=== PATIENT | male | born 1965 | race Caucasian/White ===

== ENCOUNTER 2019-12-07 15:02 | Inpatient (IN) | payer OTHER ==
[~2019-12-07] VITALS: Ht 182.9 cm; Wt 90.9 kg
[~2019-12-07 15:02] MED LIST: [UNRECOGNIZED DRUG - REMARK]
[2019-12-07] MEDS ORDERED: SERT50TA12 PO (15:23)
[2019-12-07] MEDS ORDERED: LISI-662 PO (15:23)
[2019-12-07] MEDS ORDERED: OLAN5TAB2 PO (15:23)
[2019-12-07] MEDS ORDERED: PERTUSS(ACELL),DIPH,TET VAC/PF 0.5 ML VIAL IM ONE (15:30)
[2019-12-07] MEDS ORDERED: BACITRACIN 0.9 GM PACKET OINTMENT TP ONE (15:30)
[2019-12-07] MEDS ORDERED: LORazepam 2 MG/ML VIAL IM ONE (15:45)
[2019-12-07] MEDS ORDERED: DiphenhydrAMINE HCL 50 MG/ML VIAL IM ONE (15:45)
[2019-12-07] MEDS ORDERED: HALOPERIDOL LACTATE 5 MG/ML VIAL IM ONE (15:45)
[2019-12-07 16:51] LABS: BASOPHILS % (AUTO) 0.7 % (0.0-2.0); EOSINOPHILS % (AUTO) 3.6 % (1.0-6.0); HEMATOCRIT 40.2 % (41-53); HEMOGLOBIN 13.7 g/dL (13.5-17.5); LYMPHOCYTES # (AUTO) 1.4 K/uL (1.0-4.8); LYMPHOCYTES % (AUTO) 18.5 % (22.0-44.0); MEAN CORPUSCULAR HEMOGLOBIN 30.3 pg (26.0-34.0); MEAN CORPUSCULAR HGB CONC 34.2 G/dL (31.0-37.0); MEAN CORPUSCULAR VOLUME 89 fL (80-100); MONOCYTES # (AUTO) 0.5 K/uL (0.1-1.0); MONOCYTES % (AUTO) 6.8 % (2.0-9.0); NEUTROPHILS # (AUTO) 5.3 K/uL (1.8-7.7); NEUTROPHILS % (AUTO) 70.4 % (40.0-70.0); PLATELET COUNT (AUTO) 185 K/uL (150-450); RED BLOOD CELL COUNT(AUTO) 4.54 MIL/uL (4.50-5.90); RED CELL DISTRIBUTION WIDTH 13.2 % (11.5-14.5)
[2019-12-07 16:54] LABS: ANION GAP 7 mmol/L (8-16); CARBON DIOXIDE 26 mmol/L (22-29); CHLORIDE 104 mmol/L (98-107); CREATININE 1.38 mg/dL (0.60-1.30); GLOMERULAR FILTR. RATE CALC 54 mL/min (>60); GLUCOSE,RANDOM 113 mg/dL (70-110); POTASSIUM 3.4 mmol/L (3.5-5.1); SODIUM SERUM 137 mmol/L (136-145); UREA NITROGEN, BLOOD 15 mg/dL (7-18)
[2019-12-07 17:09] LABS: ALANINE AMINOTRANSFERASE 47 U/L (12-78); ALBUMIN 3.5 g/dL (3.4-5.0); ALKALINE PHOSPHATASE 82 U/L (46-116); ASPARTATE AMINOTRANSFERASE 24 U/L (15-37); BILIRUBIN,TOTAL 0.4 mg/dL (0.1-1.0); TOTAL PROTEIN, SERUM 7.2 g/dL (6.4-8.2)
[2019-12-07] MEDS ORDERED: 0.9% SODIUM CHLORIDE 10 ML SYRINGE IVP PRN ×2 (18:45→20:30)
[2019-12-07] MEDS ORDERED: ACETAMINOPHEN 325 MG TABLET PO PRN ×2 (18:45→20:30)
[2019-12-07 20:00] VITALS: BP 154/79
[2019-12-07] MEDS ORDERED: LORazepam 2 MG TABLET PO PRN (20:30)
[2019-12-07] MEDS ORDERED: BISACODYL 10 MG RECTAL RECTAL SUPPOSITORY PR PRN (20:30)
[2019-12-07 20:55] VITALS: BP 152/105
[2019-12-07 21:00] VITALS: BP 158/65
[2019-12-07 21:04] LABS: CREATINE KINASE, TOTAL ONLY 195 U/L (39-308)
[2019-12-07 21:19] LABS: AMPHET/METH SCREEN,URINE NEGATIVE (NEGATIVE); BARBITURATE SCREEN, URINE NEGATIVE (NEGATIVE); BENZODIAZEPINES SCREEN,URINE NEGATIVE (NEGATIVE); CANNABINOID SCREEN,URINE NEGATIVE (NEGATIVE); COCAINE SCREEN,URINE NEGATIVE (NEGATIVE); METHADONE SCREEN, URINE NEGATIVE (NEGATIVE); OPIATE SCREEN,URINE NEGATIVE (NEGATIVE); PHENCYCLIDINE SCREEN,URINE NEGATIVE (NEGATIVE)
[2019-12-07] MEDS: 1: MAGNESIUM SULFATE 2 GM, MVI, ADULT NO.1 WITH VIT K 10 ML, THIAMINE 100 MG, FOLIC ACID IV SCH ×5 (21:45)
[2019-12-07 22:00] VITALS: BP 150/74
[2019-12-07 22:58] VITALS: BP 157/95
[2019-12-08 04:42] VITALS: BP 138/99
[2019-12-08] MEDS: 1: MAGNESIUM SULFATE 2 GM, MVI, ADULT NO.1 WITH VIT K 10 ML, THIAMINE 100 MG, FOLIC ACID IV SCH ×10 (06:35→17:44)
[2019-12-08] MEDS ORDERED: LORazepam 2 MG TABLET PO PRN (07:00)
[2019-12-08] MEDS: FAMOTIDINE 20 MG TABLET PO SCH (09:00)
[2019-12-08] MEDS: LORazepam 2 MG TABLET PO SCH ×2 (09:00→13:07)
[2019-12-08] MEDS: ENOXAPARIN SODIUM 40 MG/0.4 ML PF SYRINGE SQ SCH (09:00)
[2019-12-08 10:48] VITALS: BP 154/111
[2019-12-08 10:54] VITALS: BP 159/103
[2019-12-08 14:08] VITALS: BP 147/89
[2019-12-08] MEDS: LISINOPRIL 20 MG TABLET PO SCH (16:08)
[2019-12-08 16:23] LABS: CALCIUM, TOTAL 8.1 mg/dL (8.8-10.5); CREATININE 1.25 mg/dL (0.60-1.30); POTASSIUM 3.6 mmol/L (3.5-5.1)
[2019-12-08] MEDS ORDERED: LORazepam 1 MG TABLET PO SCH (18:00)
[2019-12-08 19:40] VITALS: BP 149/92
[2019-12-09] MEDS: LORazepam 1 MG TABLET PO PRN ×2 (00:09→20:17)
[2019-12-09] MEDS ORDERED: SODIUM CHLORIDE 0.9% 1,000 ML ONE (02:28)
[2019-12-09] MEDS: 1: MAGNESIUM SULFATE 2 GM, MVI, ADULT NO.1 WITH VIT K 10 ML, THIAMINE 100 MG, FOLIC ACID IV SCH ×10 (02:30→14:27)
[2019-12-09 04:32] VITALS: BP 147/95
[2019-12-09 07:02] LABS: BASOPHILS % (AUTO) 0.8 % (0.0-2.0); EOSINOPHILS % (AUTO) 6.1 % (1.0-6.0); HEMATOCRIT 37.9 % (41-53); HEMOGLOBIN 13.1 g/dL (13.5-17.5); LYMPHOCYTES # (AUTO) 1.9 K/uL (1.0-4.8); LYMPHOCYTES % (AUTO) 23.8 % (22.0-44.0); MEAN CORPUSCULAR HEMOGLOBIN 30.4 pg (26.0-34.0); MEAN CORPUSCULAR HGB CONC 34.6 G/dL (31.0-37.0); MEAN CORPUSCULAR VOLUME 88 fL (80-100); MONOCYTES # (AUTO) 0.6 K/uL (0.1-1.0); MONOCYTES % (AUTO) 7.2 % (2.0-9.0); NEUTROPHILS % (AUTO) 62.1 % (40.0-70.0); PLATELET COUNT (AUTO) 184 K/uL (150-450); RED BLOOD CELL COUNT(AUTO) 4.32 MIL/uL (4.50-5.90); RED CELL DISTRIBUTION WIDTH 13.1 % (11.5-14.5)
[2019-12-09 07:19] VITALS: BP 152/97
[2019-12-09 07:21] LABS: CALCIUM, TOTAL 8.6 mg/dL (8.8-10.5); CREATININE 1.26 mg/dL (0.60-1.30); POTASSIUM 3.5 mmol/L (3.5-5.1)
[2019-12-09] MEDS: ENOXAPARIN SODIUM 40 MG/0.4 ML PF SYRINGE SQ SCH (08:04)
[2019-12-09] MEDS: CITALOPRAM HYDROBROMIDE 20 MG TABLET PO SCH (08:04)
[2019-12-09] MEDS: LITHIUM CARBONATE 300 MG CAPSULE PO SCH ×2 (08:04→20:17)
[2019-12-09] MEDS: FAMOTIDINE 20 MG TABLET PO SCH (08:04)
[2019-12-09] MEDS: LISINOPRIL 20 MG TABLET PO SCH (08:04)
[2019-12-09 13:44] VITALS: BP_SYST 14; BP_SYST 147; BP_DIAS 88
[2019-12-09 15:16] VITALS: BP 131/89
[2019-12-09] MEDS: AmLODIPine BESYLATE 5 MG TABLET PO SCH (15:40)
[2019-12-09 19:16] VITALS: BP 134/83
[2019-12-09 20:00] VITALS: BP 134/83
[2019-12-09] MEDS: OLANZapine 10 MG TABLET PO SCH (20:17)
[2019-12-10] MEDS: 1: MAGNESIUM SULFATE 2 GM, MVI, ADULT NO.1 WITH VIT K 10 ML, THIAMINE 100 MG, FOLIC ACID IV SCH ×15 (00:49→22:50)
[2019-12-10 06:37] VITALS: BP 163/89
[2019-12-10] MEDS: LISINOPRIL 20 MG TABLET PO SCH (06:39)
[2019-12-10] MEDS ORDERED: LORazepam 1 MG TABLET PO PRN (07:00)
[2019-12-10 07:37] VITALS: BP 142/83
[2019-12-10] MEDS ORDERED: LORazepam 1 MG TABLET PO SCH (09:00)
[2019-12-10] MEDS: CITALOPRAM HYDROBROMIDE 20 MG TABLET PO SCH (09:09)
[2019-12-10] MEDS: AmLODIPine BESYLATE 5 MG TABLET PO SCH (09:09)
[2019-12-10] MEDS: LITHIUM CARBONATE 300 MG CAPSULE PO SCH ×2 (09:09→20:24)
[2019-12-10] MEDS: FAMOTIDINE 20 MG TABLET PO SCH (09:09)
[2019-12-10] MEDS: ENOXAPARIN SODIUM 40 MG/0.4 ML PF SYRINGE SQ SCH (09:09)
[2019-12-10 15:10] VITALS: BP 126/81
[2019-12-10] MEDS ORDERED: SODIUM CHLORIDE 0.9% 1,000 ML ONE (20:18)
[2019-12-10 20:23] VITALS: BP 148/97
[2019-12-10] MEDS: OLANZapine 10 MG TABLET PO SCH (20:25)
[2019-12-11 04:31] VITALS: BP 138/82
[2019-12-11] MEDS: 1: MAGNESIUM SULFATE 2 GM, MVI, ADULT NO.1 WITH VIT K 10 ML, THIAMINE 100 MG, FOLIC ACID IV SCH ×10 (04:50→15:20)
[2019-12-11] MEDS ORDERED: LORazepam 1 MG TABLET PO PRN (07:00)
[2019-12-11 07:56] VITALS: BP 152/97
[2019-12-11] MEDS: CITALOPRAM HYDROBROMIDE 20 MG TABLET PO SCH (08:12)
[2019-12-11] MEDS: LITHIUM CARBONATE 300 MG CAPSULE PO SCH ×2 (08:13→20:21)
[2019-12-11] MEDS: FAMOTIDINE 20 MG TABLET PO SCH (08:13)
[2019-12-11] MEDS: AmLODIPine BESYLATE 5 MG TABLET PO SCH (08:13)
[2019-12-11] MEDS: LISINOPRIL 20 MG TABLET PO SCH (08:13)
[2019-12-11] MEDS: ENOXAPARIN SODIUM 40 MG/0.4 ML PF SYRINGE SQ SCH (08:17)
[2019-12-11] MEDS ORDERED: CITA-144 PO (11:08)
[2019-12-11] MEDS ORDERED: AMLO-257 PO (11:08)
[2019-12-11] MEDS ORDERED: LISI-661 PO (11:08)
[2019-12-11] MEDS ORDERED: OLAN10TA3 PO (11:09)
[2019-12-11] MEDS ORDERED: LITH300CRT PO (11:09)
[2019-12-11] MEDS ORDERED: ACET-66 PO (11:10)
[2019-12-11 20:10] VITALS: BP 151/93
[2019-12-11] MEDS: OLANZapine 10 MG TABLET PO SCH (20:21)
== END 2019-12-11 23:10 | DRG 885 ==
LOC: EMS 15:04 → 6S 18:32 → UNDOADMIN 18:32 → 6S 20:23
PROVIDERS: ADMIT Internal Medicine; ATTEND Internal Medicine
DX: F20.0 Paranoid schizophrenia (principal); G92 Toxic encephalopathy; N17.9 Acute kidney failure, unspecified; I10 Essential (primary) hypertension; Z23 Encounter for immunization
CPT/HCPCS: 76770; 80307; 90715; G0480; J1200; J1630; J1650; J2060; J3411; J3475; J3490; J7030

== ENCOUNTER 2020-07-19 12:55 | Inpatient (IN) | payer OTHER ==
[~2020-07-19] VITALS: Ht 167.6 cm; Wt 81.8 kg
[~2020-07-19 12:55] MED LIST changes: +ACET-3385 PO; +AMLO-257 PO; +CITA-144 PO; +FentaNYL CITRATE PF 100 MCG/2 ML VIAL IVP ONE; +HYDROmorphone 2 MG/ML VIAL IVP ONE; +LISI-893 PO; +LISI-894 PO; +LITH300CRT PO; +MIDAZOLAM HCL 2 MG/2 ML VIAL IVP ONE; +OLAN10TA3 PO; -[UNRECOGNIZED DRUG - REMARK]
[2020-07-19 14:51] LABS: COVID AG,FIA SOURCE NASOPHARYNGEAL
[2020-07-19 15:06] LABS: BASOPHILS % (AUTO) 0.4 % (0.0-2.0); EOSINOPHILS % (AUTO) 4.2 % (1.0-6.0); HEMOGLOBIN 10.8 g/dL (13.5-17.5); LYMPHOCYTES # (AUTO) 1.4 K/uL (1.0-4.8); LYMPHOCYTES % (AUTO) 9.9 % (22.0-44.0); MEAN CORPUSCULAR HEMOGLOBIN 29.3 pg (26.0-34.0); MEAN CORPUSCULAR HGB CONC 33.6 G/dL (31.0-37.0); MEAN CORPUSCULAR VOLUME 87 fL (80-100); MONOCYTES # (AUTO) 1.1 K/uL (0.1-1.0); MONOCYTES % (AUTO) 8.1 % (2.0-9.0); NEUTROPHILS # (AUTO) 10.8 K/uL (1.8-7.7); NEUTROPHILS % (AUTO) 77.4 % (40.0-70.0); PLATELET COUNT (AUTO) 242 K/uL (150-450); RED BLOOD CELL COUNT(AUTO) 3.68 MIL/uL (4.50-5.90); RED CELL DISTRIBUTION WIDTH 14.5 % (11.5-14.5)
[2020-07-19] MEDS ORDERED: ACETAMINOPHEN 325 MG TABLET PO PRN (15:15)
[2020-07-19] MEDS ORDERED: ONDANSETRON HCL 4 MG/2 ML VIAL IVP ONE (15:15)
[2020-07-19] MEDS ORDERED: ONDANSETRON HCL 4 MG/2 ML VIAL IVP PRN (15:15)
[2020-07-19] MEDS ORDERED: SODIUM CHLORIDE 0.9% 1,000 ML IV ONE (15:15)
[2020-07-19 15:28] LABS: CREATINE KINASE, TOTAL ONLY 28 U/L (39-308); LIPASE 44 U/L (73-393)
[2020-07-19 15:32] LABS: CALCIUM, TOTAL 8.8 mg/dL (8.8-10.5); CREATININE 1.27 mg/dL (0.60-1.30); POTASSIUM 3.7 mmol/L (3.5-5.1)
[2020-07-19 15:38] LABS: BILIRUBIN,TOTAL 1.2 mg/dL (0.1-1.0); TOTAL PROTEIN, SERUM 7.7 g/dL (6.4-8.2)
[2020-07-19] MEDS ORDERED: HEPARIN SODIUM,PORCINE 5,000 UNITS/ML VIAL SQ SCH (16:00)
[2020-07-19] MEDS: FAMOTIDINE 20 MG TABLET PO SCH (16:13)
[2020-07-19] MEDS ORDERED: PIPERACILLIN/TAZO 3.375 GM/D5W 50 ML IV ONE (16:30)
[2020-07-19] MEDS ORDERED: DEXTROSE 5%-0.45% SODIUM CHL 1,000 ML IV ONE (16:45)
[2020-07-19 17:50] LABS: AMPHET/METH SCREEN,URINE NEGATIVE (NEGATIVE); APPEARANCE,URINE CLEAR (CLEAR); BARBITURATE SCREEN, URINE NEGATIVE (NEGATIVE); BENZODIAZEPINES SCREEN,URINE NEGATIVE (NEGATIVE); CANNABINOID SCREEN,URINE NEGATIVE (NEGATIVE); COCAINE SCREEN,URINE NEGATIVE (NEGATIVE); GLUCOSE, URINE (UA) NEGATIVE (NEGATIVE); KETONES,URINE TRACE mg/dL (NEGATIVE); LEUKOCYTE ESTERASE ,URINE NEGATIVE (NEGATIVE); METHADONE SCREEN, URINE NEGATIVE (NEGATIVE); NITRATE,URINE NEGATIVE (NEGATIVE); OCCULT BLOOD,URINE NEGATIVE (NEGATIVE); OPIATE SCREEN,URINE NEGATIVE (NEGATIVE); PROTEIN,URINE TRACE (NEGATIVE)
[2020-07-19 17:51] LABS: BILIRUBIN,URINE PRELIM. POSITIVE (NEGATIVE)
[2020-07-19 17:55] LABS: PHENCYCLIDINE SCREEN,URINE NEGATIVE (NEGATIVE)
[2020-07-19 17:58] LABS: BACTERIA,URINE None Seen /HPF (None Seen); RBC,URINE None Seen /HPF (0-2); SQUAMOUS EPITHELIAL CELL,UR Rare /LPF (None Seen); WBC,URINE None Seen /HPF (0-5)
[2020-07-19 17:59] VITALS: BP 132/77
[2020-07-19] MEDS ORDERED: IOHEXOL 240 MG/ML 20 ML VIAL ONE (18:51)
[2020-07-19] MEDS ORDERED: SODIUM CL IRRIG SOLN BAG 3,000 ML IRRIG ONE (18:51)
[2020-07-19] MEDS ORDERED: BUPIVACAINE 0.25%/EPI 1:200,000/PF 10 ML VIAL ONE (18:52)
[2020-07-19] MEDS ORDERED: RINGERS SOLUTION,LACTATED 1,000 ML IV ONE (19:48)
[2020-07-19] MEDS ORDERED: FentaNYL CITRATE PF 100 MCG/2 ML VIAL IVP PRN (20:30)
[2020-07-19] MEDS ORDERED: HYDROmorphone 2 MG/ML VIAL IVP PRN (20:30)
[2020-07-19] MEDS: DOCUSATE SODIUM 100 MG CAPSULE PO SCH (21:00)
[2020-07-20] MEDS ORDERED: NALOXONE HCL 0.4 MG/ML VIAL ONE (00:08)
[2020-07-20] MEDS ORDERED: NALOXONE HCL 0.4 MG/ML VIAL IVP ONE (00:15)
[2020-07-20] MEDS: PIPERACILLIN/TAZO 3.375 GM/D5W 50 ML IV SCH ×5 (00:43→22:33)
[2020-07-20 04:05] VITALS: BP 109/72
[2020-07-20] MEDS ORDERED: 0.9% SODIUM CHLORIDE 10 ML VIAL IVP ONE (06:45)
[2020-07-20] MEDS ORDERED: PROPOFOL 1% 20 ML VIAL IVP ONE (06:45)
[2020-07-20] MEDS ORDERED: ONDANSETRON HCL 4 MG/2 ML VIAL IVP ONE (06:45)
[2020-07-20] MEDS ORDERED: LIDOCAINE/PF 2% 5 ML VIAL IM ONE (06:45)
[2020-07-20] MEDS ORDERED: SUCCINYLCHOLINE CHLORIDE 20 MG/ML 10 ML VIAL IVP ONE (06:45)
[2020-07-20] MEDS ORDERED: EPHEDrine SULFATE 50 MG/ML VIAL IM ONE (06:45)
[2020-07-20 07:56] VITALS: BP 113/60
[2020-07-20] MEDS: FAMOTIDINE 20 MG TABLET PO SCH (07:58)
[2020-07-20] MEDS: DOCUSATE SODIUM 100 MG CAPSULE PO SCH ×2 (07:58→19:35)
[2020-07-20] MEDS: OXYGEN THERAPY IH SCH (08:00)
[2020-07-20] MEDS ORDERED: FentaNYL CITRATE PF 100 MCG/2 ML VIAL IVP ONE (12:00)
[2020-07-20] MEDS ORDERED: IOTHALAMATE MEGLUMINE 600 MG/ML 50 ML VIAL IVP ONE (13:21)
[2020-07-20] MEDS ORDERED: SODIUM CHLORIDE 0.9% 1,000 ML ONE ×2 (13:21→15:51)
[2020-07-20 17:20] VITALS: BP 96/56
[2020-07-20] MEDS: POTASSIUM CHL 20 MEQ/D5-NS 1,000 ML IV SCH ×2 (18:20→22:34)
[2020-07-20 19:30] VITALS: BP 99/79
[2020-07-20 23:19] VITALS: BP 106/66
[2020-07-21 04:05] VITALS: BP 120/79
[2020-07-21] MEDS: PIPERACILLIN/TAZO 3.375 GM/D5W 50 ML IV SCH ×4 (04:11→22:43)
[2020-07-21] MEDS: POTASSIUM CHL 20 MEQ/D5-NS 1,000 ML IV SCH ×2 (06:17→09:39)
[2020-07-21 08:15] VITALS: BP 121/80
[2020-07-21] MEDS: DOCUSATE SODIUM 100 MG CAPSULE PO SCH ×2 (08:40→19:52)
[2020-07-21] MEDS: FAMOTIDINE 20 MG TABLET PO SCH (08:40)
[2020-07-21] MEDS: OXYGEN THERAPY IH SCH (08:41)
[2020-07-21 10:36] LABS: HEMATOCRIT 26.9 % (41-53); MEAN CORPUSCULAR HEMOGLOBIN 29.7 pg (26.0-34.0); MEAN CORPUSCULAR HGB CONC 33.6 G/dL (31.0-37.0); MEAN CORPUSCULAR VOLUME 88 fL (80-100); PLATELET COUNT (AUTO) 247 K/uL (150-450); RED BLOOD CELL COUNT(AUTO) 3.04 MIL/uL (4.50-5.90); RED CELL DISTRIBUTION WIDTH 15.2 % (11.5-14.5)
[2020-07-21 10:58] LABS: ALBUMIN 2.1 g/dL (3.4-5.0); BILIRUBIN,TOTAL 0.6 mg/dL (0.1-1.0); CALCIUM, TOTAL 7.3 mg/dL (8.8-10.5); CREATININE 1.62 mg/dL (0.60-1.30); POTASSIUM 3.9 mmol/L (3.5-5.1); TOTAL PROTEIN, SERUM 6.2 g/dL (6.4-8.2)
[2020-07-21 12:07] VITALS: BP 120/86
[2020-07-21 12:41] LABS: BAND NEUTROPHILS % (MANUAL) 1 % (0-5); EOSINOPHILS % (MANUAL) 3 % (1-6); LYMPHOCYTES % (MANUAL) 23 % (22-44); MONOCYTES % (MANUAL) 7 % (2-9); SEGMENTED NEUTROPHILS % 66 % (40-70)
[2020-07-21] MEDS ORDERED: GADOTERATE MEGLUMINE 10 MMOL/20 ML VIAL IVP ONE (12:50)
[2020-07-21] MEDS: HEPARIN SODIUM,PORCINE 5,000 UNITS/ML VIAL SQ SCH ×2 (15:48→23:29)
[2020-07-21 16:03] VITALS: BP 132/74
[2020-07-21 20:02] VITALS: BP 136/91
[2020-07-21] MEDS: ZOLPIDEM TARTRATE 5 MG TABLET PO PRN (23:27)
[2020-07-22] MEDS: PIPERACILLIN/TAZO 3.375 GM/D5W 50 ML IV SCH ×4 (04:23→21:38)
[2020-07-22 04:58] VITALS: BP 141/77
[2020-07-22 07:22] VITALS: BP 147/91
[2020-07-22] MEDS: OXYGEN THERAPY IH SCH ×3 (08:00→21:42)
[2020-07-22] MEDS: FAMOTIDINE 20 MG TABLET PO SCH (08:12)
[2020-07-22] MEDS: DOCUSATE SODIUM 100 MG CAPSULE PO SCH ×2 (08:12→21:42)
[2020-07-22] MEDS: HEPARIN SODIUM,PORCINE 5,000 UNITS/ML VIAL SQ SCH ×3 (08:12→22:29)
[2020-07-22 10:28] LABS: BASOPHILS % (AUTO) 0.8 % (0.0-2.0); EOSINOPHILS % (AUTO) 11.6 % (1.0-6.0); HEMATOCRIT 31.8 % (41-53); HEMOGLOBIN 10.7 g/dL (13.5-17.5); LYMPHOCYTES # (AUTO) 1.6 K/uL (1.0-4.8); LYMPHOCYTES % (AUTO) 20.3 % (22.0-44.0); MEAN CORPUSCULAR HEMOGLOBIN 29.4 pg (26.0-34.0); MEAN CORPUSCULAR HGB CONC 33.6 G/dL (31.0-37.0); MEAN CORPUSCULAR VOLUME 88 fL (80-100); MONOCYTES # (AUTO) 0.6 K/uL (0.1-1.0); MONOCYTES % (AUTO) 7.5 % (2.0-9.0); NEUTROPHILS # (AUTO) 4.8 K/uL (1.8-7.7); NEUTROPHILS % (AUTO) 59.8 % (40.0-70.0); PLATELET COUNT (AUTO) 366 K/uL (150-450); RED BLOOD CELL COUNT(AUTO) 3.63 MIL/uL (4.50-5.90); RED CELL DISTRIBUTION WIDTH 14.6 % (11.5-14.5)
[2020-07-22 10:40] LABS: ALBUMIN 2.6 g/dL (3.4-5.0); BILIRUBIN,TOTAL 0.6 mg/dL (0.1-1.0); CALCIUM, TOTAL 8.3 mg/dL (8.8-10.5); CREATININE 1.61 mg/dL (0.60-1.30); POTASSIUM 3.6 mmol/L (3.5-5.1); TOTAL PROTEIN, SERUM 7.5 g/dL (6.4-8.2)
[2020-07-22 15:11] VITALS: BP 136/79
[2020-07-22 20:28] VITALS: BP 142/84
[2020-07-22] MEDS: ZOLPIDEM TARTRATE 5 MG TABLET PO PRN (20:46)
[2020-07-22] MEDS ORDERED: SODIUM CHLORIDE 0.9% 250 ML IV ONE (22:24)
[2020-07-23] MEDS: PIPERACILLIN/TAZO 3.375 GM/D5W 50 ML IV SCH ×4 (04:37→21:41)
[2020-07-23 05:29] VITALS: BP 137/88
[2020-07-23] MEDS ORDERED: ONDANSETRON HCL 4 MG/2 ML VIAL IVP ONE (06:45)
[2020-07-23] MEDS ORDERED: GLUCAGON,HUMAN RECOMBINANT 1 MG VIAL IVP ONE (06:45)
[2020-07-23] MEDS ORDERED: LIDOCAINE/PF 2% 5 ML VIAL IM ONE (06:45)
[2020-07-23] MEDS ORDERED: SUCCINYLCHOLINE CHLORIDE 20 MG/ML 10 ML VIAL IVP ONE (06:45)
[2020-07-23] MEDS ORDERED: 0.9% SODIUM CHLORIDE 10 ML VIAL IV ONE (06:45)
[2020-07-23] MEDS ORDERED: PROPOFOL 1% 20 ML VIAL IVP ONE (06:45)
[2020-07-23] MEDS ORDERED: ROCURONIUM BROMIDE 10 MG/ML 5 ML VIAL IVP ONE (06:45)
[2020-07-23] MEDS ORDERED: EPHEDrine SULFATE 50 MG/ML VIAL IM ONE (06:45)
[2020-07-23 07:28] VITALS: BP 119/76
[2020-07-23] MEDS: OXYGEN THERAPY IH SCH (08:00)
[2020-07-23] MEDS: DOCUSATE SODIUM 100 MG CAPSULE PO SCH ×2 (08:44→20:09)
[2020-07-23] MEDS: FAMOTIDINE 20 MG TABLET PO SCH (08:45)
[2020-07-23] MEDS: HEPARIN SODIUM,PORCINE 5,000 UNITS/ML VIAL SQ SCH ×3 (08:45→23:15)
[2020-07-23 09:18] LABS: CALCIUM, TOTAL 8.2 mg/dL (8.8-10.5); CREATININE 1.46 mg/dL (0.60-1.30); POTASSIUM 3.7 mmol/L (3.5-5.1)
[2020-07-23] MEDS ORDERED: SODIUM CHLORIDE 0.9% 1,000 ML IV ONE (09:45)
[2020-07-23] MEDS: CITALOPRAM HYDROBROMIDE 20 MG TABLET PO SCH (11:13)
[2020-07-23] MEDS: ZOLPIDEM TARTRATE 10 MG TABLET PO PRN (20:09)
[2020-07-23 20:10] VITALS: BP 135/93
[2020-07-23] MEDS: OLANZapine 7.5 MG TABLET PO SCH (20:10)
[2020-07-24] MEDS: PIPERACILLIN/TAZO 3.375 GM/D5W 50 ML IV SCH ×2 (03:55→10:00)
[2020-07-24] MEDS ORDERED: SODIUM CHLORIDE 0.9% 500 ML IV ONE (04:00)
[2020-07-24 05:20] VITALS: BP 131/76
[2020-07-24] MEDS: OXYGEN THERAPY IH SCH ×2 (07:59→08:00)
[2020-07-24] MEDS: FAMOTIDINE 20 MG TABLET PO SCH (08:01)
[2020-07-24] MEDS: CITALOPRAM HYDROBROMIDE 20 MG TABLET PO SCH (08:01)
[2020-07-24] MEDS: HEPARIN SODIUM,PORCINE 5,000 UNITS/ML VIAL SQ SCH ×3 (08:01→23:52)
[2020-07-24] MEDS: DOCUSATE SODIUM 100 MG CAPSULE PO SCH ×2 (08:01→20:23)
[2020-07-24 08:23] VITALS: BP 128/85
[2020-07-24 12:43] LABS: CALCIUM, TOTAL 8.2 mg/dL (8.8-10.5); CREATININE 1.56 mg/dL (0.60-1.30); POTASSIUM 3.6 mmol/L (3.5-5.1)
[2020-07-24 12:51] LABS: ALBUMIN 2.4 g/dL (3.4-5.0); BILIRUBIN,TOTAL 0.3 mg/dL (0.1-1.0)
[2020-07-24] MEDS: AMOX TR/POT CLAV 875 MG/125 MG TABLET PO SCH (20:23)
[2020-07-24] MEDS: OLANZapine 7.5 MG TABLET PO SCH (20:23)
[2020-07-24] MEDS: ZOLPIDEM TARTRATE 10 MG TABLET PO PRN (20:23)
[2020-07-24 20:31] VITALS: BP 141/94
[2020-07-25] MEDS: OXYGEN THERAPY IH SCH (08:00)
[2020-07-25 08:17] VITALS: BP 135/88
[2020-07-25] MEDS: AMOX TR/POT CLAV 875 MG/125 MG TABLET PO SCH (08:32)
[2020-07-25] MEDS: CITALOPRAM HYDROBROMIDE 20 MG TABLET PO SCH (08:32)
[2020-07-25] MEDS: FAMOTIDINE 20 MG TABLET PO SCH (08:32)
[2020-07-25] MEDS: HEPARIN SODIUM,PORCINE 5,000 UNITS/ML VIAL SQ SCH ×2 (08:32→16:29)
[2020-07-25] MEDS: DOCUSATE SODIUM 100 MG CAPSULE PO SCH (08:32)
[2020-07-25] MEDS ORDERED: AMOX1TAB16 PO (14:02)
== END 2020-07-25 19:15 | DRG 418 ==
LOC: EMS 12:55 → 6S 15:01
PROVIDERS: ADMIT Internal Medicine; ATTEND Internal Medicine
PROC: BF131ZZ Fluoroscopy of Gallbladder and Bile Ducts using Low Osmolar Contrast (ICD-10-PCS; 2020-07-19)
PROC: 0FT44ZZ Resection of Gallbladder, Percutaneous Endoscopic Approach (ICD-10-PCS; principal; 2020-07-19 19:30)
PROC: 0FJB8ZZ Inspection of Hepatobiliary Duct, Via Natural or Artificial Opening Endoscopic (ICD-10-PCS; 2020-07-20)
DX: K80.62 Calculus of gallbladder and bile duct with acute cholecystitis without obstruction (principal); K82.1 Hydrops of gallbladder; N17.9 Acute kidney failure, unspecified; F32.9 Major depressive disorder, single episode, unspecified; I10 Essential (primary) hypertension; M25.512 Pain in left shoulder; Z87.891 Personal history of nicotine dependence; F25.1 Schizoaffective disorder, depressive type; F41.9 Anxiety disorder, unspecified; Z20.822 Contact with and (suspected) exposure to COVID-19
CPT/HCPCS: 76000; 76700; 83036; 85007; 87426; 88304; 93005; 97161; 97530; 99285; A9575; J0330; J1170; J1610; J1644; J2250; J2310; J2405; J2543; J2704; J3010; J3480; J3490; J7030; J7040; J7050; J7120; Q9961; Q9966; 36415-L1; 36415-TC; 71045-TC